=== PATIENT | female | born 1955 | race African-American/Black ===

== ENCOUNTER 2024-08-09 17:23 | Emergency (ER) | payer MEDICAID ==
[~2024-08-09] VITALS: Ht 162.6 cm; Wt 90.3 kg
[2024-08-09 17:35] VITALS: O2SAT 99
[2024-08-09] MEDS ORDERED: OFLO5DRO RIGHTEYE (20:49)
[2024-08-09] MEDS: BALANCED SALT IRRIG SOLN 15ML IR ONE (20:57)
[2024-08-09] MEDS: FLUORESCEIN SODIUM 1MG/STRIP RIGHTEYE ONE (20:57)
[2024-08-09] MEDS: TETRACAINE 0.5% OPHTH DROPS 4ML RIGHTEYE ONE (20:57)
[2024-08-09 21:40] VITALS: BP 148/83; PULSE 84; RESP 18; TEMP 36.78072; O2SAT 98
== END 2024-08-09 21:44 | disposition home or self-care (01) ==
LOC: ER 17:23
DX: S05.02XA Injury of conjunctiva and corneal abrasion without foreign body, left eye, initial encounter (principal); H57.12 Ocular pain, left eye; E11.9 Type 2 diabetes mellitus without complications; I10 Essential (primary) hypertension; X58.XXXA Exposure to other specified factors, initial encounter; Y93.89 Activity, other specified; Y92.89 Other specified places as the place of occurrence of the external cause; Y99.8 Other external cause status
CPT/HCPCS: 99283